=== PATIENT | male | born 1980 | race African-American/Black ===

== ENCOUNTER 2022-11-14 12:56 | Inpatient (IN) | payer OTHER ==
[2022-11-14 13:44] VITALS: BMI 30.8
[2022-11-14] MEDS ORDERED: LOPERAMIDE HCL 2 MG CAPSULE PO PRN (14:21)
[2022-11-14] MEDS ORDERED: IBUPROFEN 400 MG TABLET (FP) PO PRN (14:21)
[2022-11-14] MEDS ORDERED: LORazepam 2 MG TABLET PO ONE (14:21)
[2022-11-14] MEDS ORDERED: METHOCARBAMOL 500 MG TABLET PO PRN (14:21)
[2022-11-14] MEDS ORDERED: guaiFENesin 600 MG TABLET.ER (FP) PO PRN (14:21)
[2022-11-14] MEDS ORDERED: ONDANSETRON *ODT* 4 MG TABLET SL PRN (14:21)
[2022-11-14] MEDS ORDERED: ACETAMINOPHEN 325 MG TABLET (FP) PO PRN (14:21)
[2022-11-14] MEDS ORDERED: POLYETHYLENE GLYCOL (HEALTHYLAX) 3350 17 GM PACKET PO PRN (14:21)
[2022-11-14] MEDS ORDERED: LORazepam 1 MG TABLET PO PRN (14:21)
[2022-11-14] MEDS ORDERED: DICYCLOMINE HCL 10 MG CAPSULE PO PRN (14:21)
[2022-11-14] MEDS ORDERED: BENZOCAINE/MENTHOL (CHLORASEPTIC ) LOZENGE MM PRN (14:21)
[2022-11-14] MEDS ORDERED: NALOXONE HCL 0.4 MG/ML VIAL IM PRN (14:21)
[2022-11-14] MEDS ORDERED: IBUPROFEN 600 MG TABLET (FP) PO PRN (14:21)
[2022-11-14] MEDS ORDERED: hydrOXYzine PAMOATE 25 MG CAPSULE (FP) PO PRN (14:21)
[2022-11-14] MEDS ORDERED: MAGNESIUM HYDROX 2400MG/30ML ORAL SUSPENSION 30 ML CUP PO PRN (14:21)
[2022-11-14] MEDS ORDERED: NALOXONE HCL (KLOXXADO) 8 MG SPRAY NS PRN (14:21)
[2022-11-14] MEDS ORDERED: BENZONATATE 200 MG CAPSULE PO PRN (14:21)
[2022-11-14] MEDS ORDERED: NICOTINE 10 MG CARTRIDGE (INHALER) IH PRN (14:21)
[2022-11-14] MEDS ORDERED: ONDANSETRON *ODT* 4 MG TABLET ONE (14:39)
[2022-11-14] MEDS ORDERED: LORazepam 2 MG TABLET ONE ×2 (14:39→17:26)
[2022-11-14] MEDS: NICOTINE 7 MG/24 HOURS TOPICAL PATCH TD SCH (15:13)
[2022-11-14] MEDS: PRENATAL VITAMINS W/ FOLIC ACID TABLET (FP) PO SCH (15:13)
[2022-11-14] MEDS: LORazepam 2 MG TABLET PO SCH ×2 (17:31→22:46)
[2022-11-14] MEDS: MAG HYDROX/AL HYDROX/SIMETH 30 ML UNIT-DOSE CUP PO PRN (17:51)
[2022-11-14] MEDS: MELATONIN 5 MG TABLETS PO SCH (22:46)
[2022-11-14] MEDS: THIAMINE HCL 100 MG TABLET (FP) PO SCH (22:46)
[2022-11-15] MEDS: MAG HYDROX/AL HYDROX/SIMETH 30 ML UNIT-DOSE CUP PO PRN (00:10)
[2022-11-15] MEDS: MELATONIN 5 MG TABLETS PO SCH ×2 (00:13→22:25)
[2022-11-15] MEDS: LORazepam 2 MG TABLET PO SCH ×4 (05:10→22:24)
[2022-11-15] MEDS ORDERED: ALBUTEROL SO4 HFA INHALER IH PRN (09:38)
[2022-11-15] MEDS: NICOTINE 7 MG/24 HOURS TOPICAL PATCH TD SCH (10:06)
[2022-11-15] MEDS: PRENATAL VITAMINS W/ FOLIC ACID TABLET (FP) PO SCH (10:06)
[2022-11-15] MEDS: amLODIPine BESYLATE 5 MG TABLET (FP) PO SCH (10:07)
[2022-11-15] MEDS: BISMUTH SUBSALICYLATE 262 MG/15 ML BTL PO PRN ×2 (10:09→18:00)
[2022-11-15 11:32] LABS: POTASSIUM 3.9 mmol/L (3.5-5.1)
[2022-11-15 11:35] LABS: CALCIUM 8.3 mg/dL (8.5-10.1)
[2022-11-15 11:36] LABS: ALBUMIN 3.3 g/dl (3.4-5.0); BLOOD UREA NITROGEN 14.4 mg/dL (7-18)
[2022-11-15 11:39] LABS: CREATININE 0.9 mg/dL (0.55-1.3)
[2022-11-15 11:41] LABS: BILIRUBIN,TOTAL 0.8 mg/dL (0.2-1); TOT PROT 7.2 g/dl (6.4-8.2)
[2022-11-15 11:42] LABS: HEMATOCRIT 34.8 % (35.4-49); HEMOGLOBIN 11.4 GM/dL (11.7-16.9); MCH 25.2 pg (25.7-33.7); MCHC 32.7 g/dl (32.0-35.9); MEAN PLT VOLUME 8.5 fl (7.5-11.1); PLATELET COUNT 163 10^3/uL (134-434); RBC 4.51 M/mm3 (4.00-5.60); RDW 15.2 % (11.9-15.9); WHITE BLOOD COUNT 6.5 K/mm3 (4.0-10.0)
[2022-11-15] MEDS: THIAMINE HCL 100 MG TABLET (FP) PO SCH (22:25)
[2022-11-16] MEDS: LORazepam 1 MG TABLET PO SCH ×2 (05:47→10:08)
[2022-11-16] MEDS: PRENATAL VITAMINS W/ FOLIC ACID TABLET (FP) PO SCH (10:08)
[2022-11-16] MEDS: LACTULOSE 20 GM/30 ML UDC (FOR ORAL USE ONLY) PO SCH ×2 (10:08→13:17)
[2022-11-16] MEDS: amLODIPine BESYLATE 5 MG TABLET (FP) PO SCH (10:08)
[2022-11-16] MEDS: NICOTINE 7 MG/24 HOURS TOPICAL PATCH TD SCH (10:09)
[2022-11-16 13:22] VITALS: BP 127/75; PULSE 87; RESP 18; TEMP 97.7
[2022-11-17] MEDS ORDERED: LORazepam 0.5 MG TABLET PO PRN
[2022-11-17] MEDS ORDERED: LORazepam 0.5 MG TABLET PO SCH (05:00)
[2022-11-18] MEDS ORDERED: LORazepam 0.5 MG TABLET PO ONE (05:00)
== END 2022-11-16 16:12 | disposition left against medical advice (07) | DRG 770 ==
LOC: YASAS 12:56 → Y3N 16:55
PROVIDERS: ADMIT Allergy & Immunology; ATTEND Surgery
PROC: HZ2ZZZZ Detoxification Services for Substance Abuse Treatment (ICD-10-PCS; principal; 2022-11-14)
DX: F10.230 Alcohol dependence with withdrawal, uncomplicated (principal); F12.20 Cannabis dependence, uncomplicated; F17.210 Nicotine dependence, cigarettes, uncomplicated; F41.1 Generalized anxiety disorder; I10 Essential (primary) hypertension; R79.89 Other specified abnormal findings of blood chemistry; R74.01 Elevation of levels of liver transaminase levels; Z86.11 Personal history of tuberculosis
CPT/HCPCS: 36415; 71046-TC-FY; 80053; 82140; 85027; 86780; 87635; 93005; 93010; Q0162

== ENCOUNTER 2023-05-20 13:37 | Inpatient (IN) | payer OTHER ==
[2023-05-20 14:13] VITALS: BMI 28.2
[2023-05-20] MEDS ORDERED: LORazepam 1 MG TABLET PO PRN (14:30)
[2023-05-20] MEDS ORDERED: IBUPROFEN 400 MG TABLET (FP) PO PRN (14:30)
[2023-05-20] MEDS ORDERED: LOPERAMIDE HCL 2 MG CAPSULE PO PRN (14:30)
[2023-05-20] MEDS ORDERED: BENZONATATE 200 MG CAPSULE PO PRN (14:30)
[2023-05-20] MEDS ORDERED: BENZOCAINE/MENTHOL (CHLORASEPTIC ) LOZENGE MM PRN (14:30)
[2023-05-20] MEDS ORDERED: METHOCARBAMOL 500 MG TABLET PO PRN (14:30)
[2023-05-20] MEDS ORDERED: NALOXONE HCL 0.4 MG/ML VIAL IM PRN (14:30)
[2023-05-20] MEDS ORDERED: IBUPROFEN 600 MG TABLET (FP) PO PRN (14:30)
[2023-05-20] MEDS ORDERED: BISMUTH SUBSALICYLATE 262 MG/15 ML BTL PO PRN (14:30)
[2023-05-20] MEDS ORDERED: MAGNESIUM HYDROX 2400MG/30ML ORAL SUSPENSION 30 ML CUP PO PRN (14:30)
[2023-05-20] MEDS ORDERED: NALOXONE HCL (KLOXXADO) 8 MG SPRAY NS PRN (14:30)
[2023-05-20] MEDS ORDERED: MAG HYDROX/AL HYDROX/SIMETH 30 ML UNIT-DOSE CUP PO PRN (14:30)
[2023-05-20] MEDS ORDERED: POLYETHYLENE GLYCOL (HEALTHYLAX) 3350 17 GM PACKET PO PRN (14:30)
[2023-05-20] MEDS ORDERED: DICYCLOMINE HCL 10 MG CAPSULE PO PRN (14:30)
[2023-05-20] MEDS ORDERED: guaiFENesin 600 MG TABLET.ER (FP) PO PRN (14:30)
[2023-05-20] MEDS ORDERED: hydrOXYzine PAMOATE 25 MG CAPSULE (FP) PO PRN (14:30)
[2023-05-20] MEDS ORDERED: ONDANSETRON *ODT* 4 MG TABLET SL PRN (14:30)
[2023-05-20] MEDS ORDERED: ACETAMINOPHEN 325 MG TABLET (FP) PO PRN (14:30)
[2023-05-20] MEDS ORDERED: ALBUTEROL SO4 HFA INHALER IH ONE (15:49)
[2023-05-20] MEDS ORDERED: PRENATAL VITAMINS W/ FOLIC ACID TABLET (FP) PO ONE (15:49)
[2023-05-20] MEDS: ALBUTEROL SO4 HFA INHALER IH SCH ×2 (15:50→22:40)
[2023-05-20] MEDS: PRENATAL VITAMINS W/ FOLIC ACID TABLET (FP) PO SCH (15:50)
[2023-05-20] MEDS: LORazepam 2 MG TABLET PO SCH ×2 (17:34→22:39)
[2023-05-20] MEDS ORDERED: propRANOLol HCL 10 MG TABLET PO ONE (17:51)
[2023-05-20] MEDS: THIAMINE HCL 100 MG TABLET (FP) PO SCH (22:43)
[2023-05-20] MEDS: MELATONIN 5 MG TABLETS PO SCH (22:43)
[2023-05-21] MEDS: ALBUTEROL SO4 HFA INHALER IH SCH ×2 (02:55→09:19)
[2023-05-21] MEDS: LORazepam 2 MG TABLET PO SCH ×4 (05:58→22:32)
[2023-05-21] MEDS ORDERED: amLODIPine BESYLATE 5 MG TABLET (FP) PO SCH (10:00)
[2023-05-21] MEDS: PRENATAL VITAMINS W/ FOLIC ACID TABLET (FP) PO SCH (10:26)
[2023-05-21 11:21] LABS: POTASSIUM 3.9 mmol/L (3.5-5.1)
[2023-05-21 11:31] LABS: TOT PROT 7.6 g/dl (6.4-8.2)
[2023-05-21 11:32] LABS: BILIRUBIN,TOTAL 0.5 mg/dL (0.2-1)
[2023-05-21 11:34] LABS: CREATININE 1.1 mg/dL (0.55-1.3)
[2023-05-21 11:35] LABS: HEMATOCRIT 37.2 % (35.4-49); HEMOGLOBIN 11.9 GM/dL (11.7-16.9); MCHC 31.9 g/dl (32.0-35.9); MEAN CELL VOLUME 78.2 fl (80-96); MEAN PLT VOLUME 7.9 fl (7.5-11.1); PLATELET COUNT 192 10^3/uL (134-434); RBC 4.76 M/mm3 (4.00-5.60); RDW 15.2 % (11.9-15.9); WHITE BLOOD COUNT 4.6 K/mm3 (4.0-10.0)
[2023-05-21 11:36] LABS: ALBUMIN 3.4 g/dl (3.4-5.0)
[2023-05-21 11:40] LABS: CALCIUM 8.5 mg/dL (8.5-10.1)
[2023-05-21 11:41] LABS: BLOOD UREA NITROGEN 9.5 mg/dL (7-18)
[2023-05-21] MEDS ORDERED: ALBUTEROL SO4 HFA INHALER IH PRN (13:14)
[2023-05-21] MEDS: MELATONIN 5 MG TABLETS PO SCH (22:32)
[2023-05-21] MEDS: THIAMINE HCL 100 MG TABLET (FP) PO SCH (22:32)
[2023-05-22] MEDS ORDERED: LORazepam 1 MG TABLET PO SCH (05:00)
[2023-05-22 06:44] VITALS: BP 143/93; PULSE 99; RESP 18; TEMP 98
[2023-05-23] MEDS ORDERED: LORazepam 0.5 MG TABLET PO PRN
[2023-05-23] MEDS ORDERED: LORazepam 0.5 MG TABLET PO SCH (05:00)
[2023-05-24] MEDS ORDERED: LORazepam 0.5 MG TABLET PO ONE (05:00)
== END 2023-05-22 08:52 | disposition left against medical advice (07) | DRG 770 ==
LOC: YASAS 13:37 → Y3N 16:01
PROVIDERS: ADMIT Allergy & Immunology; ATTEND Surgery
PROC: HZ2ZZZZ Detoxification Services for Substance Abuse Treatment (ICD-10-PCS; principal; 2023-05-20)
DX: F10.230 Alcohol dependence with withdrawal, uncomplicated (principal); F41.1 Generalized anxiety disorder; I10 Essential (primary) hypertension; J45.909 Unspecified asthma, uncomplicated; R74.01 Elevation of levels of liver transaminase levels; Z86.11 Personal history of tuberculosis; Z56.0 Unemployment, unspecified; Z59.00 Homelessness unspecified; Z28.310 Unvaccinated for COVID-19; Z28.9 Immunization not carried out for unspecified reason
CPT/HCPCS: 36415; 80053; 80307; 83036; 85027; 86780; 87811

== ENCOUNTER 2023-07-03 11:22 | Inpatient (IN) | payer OTHER ==
[2023-07-03 11:48] VITALS: BMI 29.9
[2023-07-03] MEDS ORDERED: IBUPROFEN 400 MG TABLET (FP) PO PRN (14:55)
[2023-07-03] MEDS ORDERED: MAGNESIUM HYDROX 2400MG/30ML ORAL SUSPENSION 30 ML CUP PO PRN (14:55)
[2023-07-03] MEDS ORDERED: MAG HYDROX/AL HYDROX/SIMETH 30 ML UNIT-DOSE CUP PO PRN (14:55)
[2023-07-03] MEDS ORDERED: BENZOCAINE/MENTHOL (CHLORASEPTIC ) LOZENGE MM PRN (14:55)
[2023-07-03] MEDS ORDERED: BENZONATATE 200 MG CAPSULE PO PRN (14:55)
[2023-07-03] MEDS ORDERED: guaiFENesin 600 MG TABLET.ER (FP) PO PRN (14:55)
[2023-07-03] MEDS ORDERED: LOPERAMIDE HCL 2 MG CAPSULE PO PRN (14:55)
[2023-07-03] MEDS ORDERED: P-EPHED 60MG/TRIPROLIDI 2.5MG TABLET PO PRN (14:55)
[2023-07-03] MEDS ORDERED: ACETAMINOPHEN 325 MG TABLET (FP) PO PRN (14:55)
[2023-07-03] MEDS ORDERED: IBUPROFEN 600 MG TABLET (FP) PO PRN (14:55)
[2023-07-03] MEDS ORDERED: POLYETHYLENE GLYCOL (HEALTHYLAX) 3350 17 GM PACKET PO PRN (14:55)
[2023-07-03] MEDS ORDERED: hydrOXYzine PAMOATE 25 MG CAPSULE (FP) PO PRN (14:55)
[2023-07-03] MEDS: THIAMINE HCL 100 MG TABLET (FP) PO SCH (21:17)
[2023-07-03] MEDS: MELATONIN 5 MG TABLETS PO SCH (21:17)
[2023-07-04] MEDS ORDERED: ALBUTEROL SO4 HFA INHALER IH SCH (08:15)
[2023-07-04] MEDS ORDERED: amLODIPine BESYLATE 5 MG TABLET (FP) PO SCH (10:00)
[2023-07-04] MEDS: PRENATAL VITAMINS W/ FOLIC ACID TABLET (FP) PO SCH (10:18)
[2023-07-04 10:44] LABS: CHLORIDE 105 mmol/L (98-107); POTASSIUM 3.9 mmol/L (3.5-5.1); SODIUM 137 mmol/L (136-145)
[2023-07-04 10:48] LABS: HEMATOCRIT 37.4 % (35.4-49); HEMOGLOBIN 11.9 GM/dL (11.7-16.9); MCH 25.6 pg (25.7-33.7); MCHC 31.9 g/dl (32.0-35.9); MEAN CELL VOLUME 80.5 fl (80-96); MEAN PLT VOLUME 9.6 fl (7.5-11.1); PLATELET COUNT 148 10^3/uL (134-434); RBC 4.64 M/mm3 (4.00-5.60); RDW 15.1 % (11.9-15.9); WHITE BLOOD COUNT 5.4 K/mm3 (4.0-10.0)
[2023-07-04 10:57] LABS: ANION GAP 7 mmol/L (4-13); BLOOD UREA NITROGEN 16.7 mg/dL (7-18); CALCIUM 9.1 mg/dL (8.5-10.1); CO2 26 mmol/L (21-32)
[2023-07-04 10:58] LABS: ALBUMIN 3.7 g/dl (3.4-5.0); GLUCOSE,RANDOM 141 mg/dL (74-106); SGOT/AST 35 U/L (15-37); SGPT/ALT 47 U/L (13-61)
[2023-07-04 11:00] LABS: BILIRUBIN,TOTAL 0.4 mg/dL (0.2-1)
[2023-07-04 11:01] LABS: ALK PHOS 73 U/L (45-117)
[2023-07-04 11:02] LABS: URINE APPEARANCE CLEAR; URINE BILIRUBIN NEGATIVE (NEGATIVE); URINE COLOR YELLOW; URINE GLUCOSE (UA) NEGATIVE (NEGATIVE); URINE KETONE NEGATIVE (NEGATIVE); URINE LEUK ESTERASE NEGATIVE (NEGATIVE); URINE NITRITE NEGATIVE (NEGATIVE); URINE PROTEIN NEGATIVE (NEGATIVE); URINE UROBILINOGEN 0.2 mg/dL (0.2-1.0)
[2023-07-04 11:40] LABS: HIV INTERPRETATION NEGATIVE (NEGATIVE)
[2023-07-04] MEDS ORDERED: ALBUTEROL SO4 HFA INHALER IH PRN (12:43)
[2023-07-04] MEDS: THIAMINE HCL 100 MG TABLET (FP) PO SCH (21:57)
[2023-07-04] MEDS: MELATONIN 5 MG TABLETS PO SCH (21:58)
[2023-07-05] MEDS: PRENATAL VITAMINS W/ FOLIC ACID TABLET (FP) PO SCH (09:51)
[2023-07-05] MEDS: MELATONIN 5 MG TABLETS PO SCH (21:35)
[2023-07-05] MEDS: THIAMINE HCL 100 MG TABLET (FP) PO SCH (21:35)
[2023-07-06] MEDS: PRENATAL VITAMINS W/ FOLIC ACID TABLET (FP) PO SCH (09:59)
[2023-07-06] MEDS: MELATONIN 5 MG TABLETS PO SCH (21:54)
[2023-07-06] MEDS: THIAMINE HCL 100 MG TABLET (FP) PO SCH (21:54)
[2023-07-07] MEDS: PRENATAL VITAMINS W/ FOLIC ACID TABLET (FP) PO SCH (09:43)
[2023-07-07] MEDS: THIAMINE HCL 100 MG TABLET (FP) PO SCH (22:45)
[2023-07-07] MEDS: MELATONIN 5 MG TABLETS PO SCH (22:45)
[2023-07-08] MEDS: PRENATAL VITAMINS W/ FOLIC ACID TABLET (FP) PO SCH (09:30)
[2023-07-08] MEDS: MELATONIN 5 MG TABLETS PO SCH (21:56)
[2023-07-08] MEDS: THIAMINE HCL 100 MG TABLET (FP) PO SCH (21:56)
[2023-07-09] MEDS: PRENATAL VITAMINS W/ FOLIC ACID TABLET (FP) PO SCH (10:19)
[2023-07-09] MEDS: THIAMINE HCL 100 MG TABLET (FP) PO SCH (21:56)
[2023-07-09] MEDS: MELATONIN 5 MG TABLETS PO SCH (21:56)
[2023-07-10] MEDS: PRENATAL VITAMINS W/ FOLIC ACID TABLET (FP) PO SCH (10:12)
[2023-07-10] MEDS: MELATONIN 5 MG TABLETS PO SCH (21:31)
[2023-07-10] MEDS: THIAMINE HCL 100 MG TABLET (FP) PO SCH (21:31)
[2023-07-11] MEDS: PRENATAL VITAMINS W/ FOLIC ACID TABLET (FP) PO SCH (10:01)
[2023-07-11] MEDS: THIAMINE HCL 100 MG TABLET (FP) PO SCH (21:32)
[2023-07-11] MEDS: MELATONIN 5 MG TABLETS PO SCH (21:32)
[2023-07-12] MEDS: PRENATAL VITAMINS W/ FOLIC ACID TABLET (FP) PO SCH (10:00)
[2023-07-12] MEDS: THIAMINE HCL 100 MG TABLET (FP) PO SCH (22:10)
[2023-07-12] MEDS: MELATONIN 5 MG TABLETS PO SCH (22:10)
[2023-07-13] MEDS: PRENATAL VITAMINS W/ FOLIC ACID TABLET (FP) PO SCH (09:33)
[2023-07-13] MEDS: THIAMINE HCL 100 MG TABLET (FP) PO SCH (21:44)
[2023-07-13] MEDS: MELATONIN 5 MG TABLETS PO SCH (21:44)
[2023-07-14] MEDS: PRENATAL VITAMINS W/ FOLIC ACID TABLET (FP) PO SCH (10:10)
[2023-07-14] MEDS: THIAMINE HCL 100 MG TABLET (FP) PO SCH (21:50)
[2023-07-14] MEDS: MELATONIN 5 MG TABLETS PO SCH (21:50)
[2023-07-15] MEDS: PRENATAL VITAMINS W/ FOLIC ACID TABLET (FP) PO SCH (09:46)
[2023-07-15] MEDS: THIAMINE HCL 100 MG TABLET (FP) PO SCH (23:22)
[2023-07-15] MEDS: MELATONIN 5 MG TABLETS PO SCH (23:22)
[2023-07-16] MEDS: PRENATAL VITAMINS W/ FOLIC ACID TABLET (FP) PO SCH (09:48)
[2023-07-16] MEDS: THIAMINE HCL 100 MG TABLET (FP) PO SCH (21:33)
[2023-07-16] MEDS: MELATONIN 5 MG TABLETS PO SCH (21:33)
[2023-07-17 06:30] VITALS: BP 130/84; PULSE 68; RESP 16; TEMP 98.1
[2023-07-17] MEDS: PRENATAL VITAMINS W/ FOLIC ACID TABLET (FP) PO SCH (09:09)
== END 2023-07-17 09:30 | disposition home or self-care (01) | DRG 775 ==
LOC: YASAS 11:22 → Y3E 15:01
PROVIDERS: ADMIT Allergy & Immunology; ATTEND Psychiatry & Neurology Pain Medicine
PROC: HZ42ZZZ Group Counseling for Substance Abuse Treatment, Cognitive-Behavioral (ICD-10-PCS; principal; 2023-07-03)
DX: F10.10 Alcohol abuse, uncomplicated (principal); I10 Essential (primary) hypertension; Z87.09 Personal history of other diseases of the respiratory system; Z86.59 Personal history of other mental and behavioral disorders; Z86.11 Personal history of tuberculosis
CPT/HCPCS: 36415; 80053; 80307; 81003; 83036; 85027; 86780; 87389; 87635; 87811

== ENCOUNTER 2025-03-18 18:12 | Inpatient (IN) | payer OTHER ==
[2025-03-18 19:58] VITALS: BMI 26.4
[2025-03-18] MEDS ORDERED: POLYETHYLENE GLYCOL (HEALTHYLAX) 3350 17 GM PACKET PO PRN (21:50)
[2025-03-18] MEDS ORDERED: LOPERAMIDE HCL 2 MG CAPSULE PO PRN (21:50)
[2025-03-18] MEDS ORDERED: ONDANSETRON *ODT* 4 MG TABLET SL PRN (21:50)
[2025-03-18] MEDS ORDERED: ACETAMINOPHEN 325 MG TABLET (FP) PO PRN (21:50)
[2025-03-18] MEDS ORDERED: IBUPROFEN 600 MG TABLET (FP) PO PRN (21:50)
[2025-03-18] MEDS ORDERED: BENZOCAINE/MENTHOL (CHLORASEPTIC ) LOZENGE MM PRN (21:50)
[2025-03-18] MEDS ORDERED: BENZONATATE 200 MG CAPSULE PO PRN (21:50)
[2025-03-18] MEDS ORDERED: MAG HYDROX/AL HYDROX/SIMETH 30 ML UNIT-DOSE CUP PO PRN (21:50)
[2025-03-18] MEDS ORDERED: NALOXONE (NARCAN) HCL 4 MG/0.1 ML SPRAY NS PRN (21:50)
[2025-03-18] MEDS ORDERED: guaiFENesin 600 MG TABLET.ER (FP) PO PRN (21:50)
[2025-03-18] MEDS ORDERED: MAGNESIUM HYDROX 2400MG/30ML ORAL SUSPENSION 30 ML CUP PO PRN (21:50)
[2025-03-18] MEDS ORDERED: IBUPROFEN 400 MG TABLET (FP) PO PRN (21:50)
[2025-03-18] MEDS ORDERED: DICYCLOMINE HCL 10 MG CAPSULE PO PRN (21:50)
[2025-03-18] MEDS ORDERED: BISMUTH SUBSALICYLATE 524 MG/30 ML PO PRN (21:50)
[2025-03-18] MEDS ORDERED: levETIRAcetam 500 MG TABLET (FP) PO ONE (23:02)
[2025-03-18] MEDS ORDERED: MELATONIN 5 MG TABLETS ONE (23:02)
[2025-03-18] MEDS: levETIRAcetam 500 MG TABLET (FP) PO SCH (23:06)
[2025-03-18] MEDS: THIAMINE 100 MG TABLET PO SCH (23:06)
[2025-03-18] MEDS: MELATONIN 5 MG TABLETS PO SCH (23:07)
[2025-03-18] MEDS: METHOCARBAMOL 500 MG TABLET PO PRN (23:39)
[2025-03-18] MEDS: hydrOXYzine PAMOATE 25 MG CAPSULE (FP) PO PRN (23:39)
[2025-03-19] MEDS: PRENATAL VITAMINS W/ FOLIC ACID TABLET (FP) PO SCH (10:24)
[2025-03-19 12:06] LABS: MCHC 32.1 g/dl (32.3-36.5); MEAN CELL VOLUME 82.8 fl (79.0-92.2); MEAN PLT VOLUME 10.1 fl (9.4-12.4); RDW 16.1 % (12.1-15.9)
[2025-03-19 12:22] LABS: GLUCOSE,RANDOM 127.0 mg/dL (74-106); TOT PROT 7.4 g/dl (6.4-8.2)
[2025-03-19 12:23] LABS: CO2 27.0 mmol/L (21-32)
[2025-03-19 12:24] LABS: ALK PHOS 63.0 U/L (40-150)
[2025-03-19 12:27] LABS: CREATININE 0.8 mg/dL (0.55-1.3); SGOT/AST 57.0 U/L (5-34); SGPT/ALT 47.0 U/L (0-55)
[2025-03-19] MEDS: MELATONIN 5 MG TABLETS PO SCH (22:26)
[2025-03-20] MEDS ORDERED: ALBUTEROL SO4 HFA INHALER IH PRN (18:37)
[2025-03-20] MEDS: amLODIPine BESYLATE 5 MG TABLET (FP) PO SCH (18:42)
[2025-03-20] MEDS: MAGNESIUM OXIDE 400 MG TABLET (FP) PO ONE (18:52)
[2025-03-20] MEDS: POTASSIUM CHLORIDE ORAL LIQUID 20 MEQ/15 ML PO ONE (18:52)
[2025-03-21 12:30] VITALS: BP 135/90; PULSE 100; RESP 16; TEMP 97.7
== END 2025-03-21 03:21 | disposition home or self-care (01) | DRG 775 ==
LOC: YASAS 18:12 → Y3N 22:51
PROVIDERS: ADMIT Neuromusculoskeletal Medicine & OMM; ATTEND Student in an Organized Health Care Education/Training Program
PROC: HZ2ZZZZ Detoxification Services for Substance Abuse Treatment (ICD-10-PCS; principal; 2025-03-18)
DX: F10.230 Alcohol dependence with withdrawal, uncomplicated (principal); F17.210 Nicotine dependence, cigarettes, uncomplicated; I10 Essential (primary) hypertension; J45.909 Unspecified asthma, uncomplicated; R76.11 Nonspecific reaction to tuberculin skin test without active tuberculosis; Z59.01 Sheltered homelessness
CPT/HCPCS: 36415; 80053; 80305; 80307; 85027; 86780; 93005; 93010